=== PATIENT | female | born 1975 | race Caucasian/White ===

== ENCOUNTER 2017-02-18 10:36 | Emergency (ER) | payer OTHER ==
--- NOTE | ~2017-02-18 | CR94 ---
[facility]. [facility] A Service of [facility] RADIOLOGY TEXT RESULTS PATIENT: YUE MCCLAIN LOCATION: SED : 77 UNIT #: [id number] AGE: [address]: Noah Barreto MD SEX: F ORDER DR: [id number] [place] [id number] E MR#: [id number] Acc #: [id number] NAME: YUE MCCLAIN : 1975 SEX: F STUDY DATE/TIME: 02/18/2017 10:50 UNIT: SED ROOM: STUDY DESCRIPTION: CR Elbow Min 3 Views Rt Attending Physician: Noah Barreto M.D. Ordering Physician: Noah Barreto M.D. Primary Care Physician: No Primary Care Physician MEDICAL IMAGING REPORT This report is preliminary unless electronic signature is present. STUDY Right elbow, 3 views. HISTORY Pain posterior elbow. Fell last night in bath tub. FINDINGS Three views are submitted. Bony elements are intact and in normal alignment. No fractures or joint effusion are seen. CONCLUSION Negative. Dictated by... Nic Young M.D. THIS IS AN ELECTRONICALLY VERIFIED REPORT Nic Young M.D. at 02/19/2017 9:16 AM ANMOL/josé TD: 02/18/2017 15:58 JOB #: [id number] MEDICAL IMAGING REPORT Page 1 of 1
[~2017-02-18 10:36] MED LIST: FLEXERIL10 MG PO; NO MEDICATIONS
== END 2017-02-18 11:40 | disposition home or self-care (01) ==
LOC: SED 10:36
DX: S50.01XA Contusion of right elbow, initial encounter (principal); Z98.51 Tubal ligation status; W18.2XXA Fall in (into) shower or empty bathtub, initial encounter; Y92.009 Unspecified place in unspecified non-institutional (private) residence as the place of occurrence of the external cause
CPT/HCPCS: 73080; 99283

== ENCOUNTER 2017-03-05 17:02 | Emergency (ER) | payer OTHER | END 2017-03-05 18:21 | disposition home or self-care (01) | LOC: SED 17:02 | DX: T63.441A Toxic effect of venom of bees, accidental (unintentional), initial encounter (principal); L50.0 Allergic urticaria; F17.210 Nicotine dependence, cigarettes, uncomplicated | CPT/HCPCS: 99282 ==